=== PATIENT | male | born 1975 | race Caucasian/White ===

== ENCOUNTER 2017-10-09 14:03 | Emergency (ER) | payer BC, MEDICAID ==
[2017-10-09 14:28] VITALS: BP 158/97
[2017-10-09] MEDS ORDERED: Tetan/Diph/Pertus SYR(Tdap)* 0.5 ML SYR(BOOSTRIX) use SYR IM ONE (14:56)
--- NOTE | 2017-10-09 15:02 | UC ---
Laceration HPI - HPI Summary HPI Summary: The patient is a 41-year-old male who presents here today requesting a tetanus shot. He sustained a laceration to his left palm about 2 hours prior to arrival. The laceration is not very deep and is not currently bleeding. He has a foreign body sensation and thinks he can see a piece of metal in his laceration. His pain is minimal. He is left-handed. - History Of Current Complaint Chief Complaint: UCLaceration Stated Complaint: LEFT HAND LACERATION Time Seen by Provider: 10/09/17 14:42 Hx Obtained From: Patient Laceration Location: Hand Onset/Duration: Sudden Onset, Lasting Hours Severity: Mild Pain Intensity: 0 Pain Scale Used: 0-10 Numeric Related History: Dominant Hand Left - Allergies/Home Medications Allergies/Adverse Reactions: Allergies Allergy/AdvReac Type Severity Reaction Status Date / Time No Known Allergies Allergy Verified 10/09/17 14:22 Home Medications: Home Medications NK [No Home Medications Reported] 10/09/17 [History Confirmed 10/09/17] PMH/Surg Hx/FS Hx/Imm Hx Previously Healthy: Yes - Surgical History Surgical History: Yes Surgery Procedure, Year, and Place: Left Abdominal Herniorrhaphy, ~, [place] - Family History Known Family History: Positive: Cardiac Disease, Hypertension, Diabetes - Social History Alcohol Use: Occasionally Substance Use Type: None Smoking Status (MU): Heavy Every Day Tobacco Smoker Type: Smokeless Tobacco Amount Used/How Often: 1 can/daily Length of Time of Smoking/Using Tobacco: Since Age 17 Household Exposure Type: Cigarettes - Immunization History Most Recent Tetanus Shot: ~2002 Review of Systems Constitutional: Negative Skin: Negative Eyes: Negative ENT: Negative Respiratory: Negative Cardiovascular: Negative Gastrointestinal: Negative Genitourinary: Negative Motor: Negative Neurovascular: Negative Musculoskeletal: Negative Neurological: Negative Psychological: Negative Is Patient Immunocompromised?: No All Other Systems Reviewed And Are Negative: Yes Physical Exam Triage Information Reviewed: Yes Appearance: Well-Appearing, No Pain Distress, Well-Nourished Vital Signs: Initial Vital Signs Temp 97.9 F 10/09/17 14:21 Pulse 74 10/09/17 14:21 Resp 15 10/09/17 14:21 BP 158/97 10/09/17 14:21 Pulse Ox 98 10/09/17 14:21 Vital Signs Reviewed: Yes Eyes: Positive: Conjunctiva Clear ENT: Positive: Hearing grossly normal. Negative: Nasal congestion, Nasal drainage, Trismus, Muffled voice, Hoarse voice Respiratory: Positive: Lungs clear, Normal breath sounds, No respiratory distress Cardiovascular: Positive: RRR, No Murmur Musculoskeletal: Positive: ROM Intact, No Edema Neurological: Positive: Alert Psychological Exam: Normal Skin Exam: Other - see image Laceration Repair - Laceration Repair 1 Description: Linear : No Repair Necessary Laceration Size After Repair: Length (cm) - 2, Width (mm) - 2, Depth (mm) - 2 Contamination/FB Removal: 1-2 mm x 1-2 mm piece of metal removed with splint forceps Modified For Repair: No Cleansing Completed Via Routine Prep: Yes Irrigation With Pressure Irrigation Device: Yes Laceration Course/Dx - Differential Dx - Laceration/Wound Provider Diagnoses: left hand laceration- not sutured. foreign body removal left hand Discharge - Sign-Out/Discharge Documenting (check all that apply): Patient Departure - Discharge Plan Condition: Stable Disposition: HOME Patient Education Materials: Soft Tissue Foreign Body (ED), Laceration Without Closure (ED) Referrals: [facility] [place] [facility] [Outside] - If Needed Additional Instructions: your blood pressure here was elevated 158/97 you need to find a primary care provider to follow it soak left hand in warm soapy water 3 x day until healed recheck for concerns of infection ' return for any problems you had a tetanus shot today - Billing Disposition and Condition Condition: STABLE Disposition: Home
== END 2017-10-09 15:25 | disposition home or self-care (01) ==
LOC: UCCORT 14:03
DX: S61.412A Laceration without foreign body of left hand, initial encounter (principal); F17.220 Nicotine dependence, chewing tobacco, uncomplicated; S61.422A Laceration with foreign body of left hand, initial encounter; W45.8XXA Other foreign body or object entering through skin, initial encounter; Y93.9 Activity, unspecified; Y92.9 Unspecified place or not applicable
CPT/HCPCS: 90471; 90715; 99202; G0463